=== PATIENT | female | born 1960 | race Caucasian/White ===

== ENCOUNTER 2022-12-08 13:34 | Outpatient (CLI) | payer OTHER, SELFPAY ==
[2022-12-08 21:54] LABS: Chloride* 106 mmol/L (96-114); Potassium* 4.5 mmol/L (3.6-5.1); Sodium* 140 mmol/L (135-149)
[2022-12-08 21:57] LABS: Blood Urea Nitrogen* 22 mg/dL (7-30); Calcium* 10.3 mg/dL (8.4-10.6); Carbon Dioxide* 26 mmol/L (20-32); Estimated Glomerular Filt Rate 64 ml/min; Glucose* 102 mg/dL (60-115); Magnesium* 2.2 mg/dL (1.5-2.6)
== END 2022-12-08 13:35 | disposition home or self-care (01) ==
PROVIDERS: Visit Provider Nurse Practitioner Family
DX: E66.01 Morbid (severe) obesity due to excess calories (principal); R00.2 Palpitations; E55.9 Vitamin D deficiency, unspecified
CPT/HCPCS: 80048; 83735; 84443

== ENCOUNTER 2023-02-25 16:55 | Outpatient (CLI) | payer OTHER, SELFPAY ==
--- NOTE | 2023-02-25 17:00 | CRLHL7_ITS ---
For Patients: As a result of the Century Cures Act, medical imaging exams and procedure reports are released immediately into your electronic medical record. You may view this report before your referring provider. If you have questions, please contact your health care provider. Indication: PALPABLE AREA LEFT SUBMANDIBULAR AREA Technique: Grayscale and color Doppler ultrasound of the left submandibular space performed. Comparison: None Findings: A mildly prominent left submandibular lymph node is present measuring 1.3 x 0.6 x 0.9 cm. A smaller lymph node is also present measuring 9 x 4 x 10 millimeters. Normal internal flow and normal central fatty mark. Impression: Mildly prominent left submandibular lymph node. Dictated by Artie Dang MD @ 02/26/2023 8:30:27 AM (Electronically Signed)
== END 2023-02-25 16:56 | disposition home or self-care (01) ==
PROVIDERS: PCP Nurse Practitioner Family; Visit Provider Nurse Practitioner Family
DX: R59.0 Localized enlarged lymph nodes (principal); R53.83 Other fatigue; E55.9 Vitamin D deficiency, unspecified
CPT/HCPCS: 76536; 80053; 82306; 82607; 84443; 85025; 86039

== ENCOUNTER 2023-06-14 20:14 | Outpatient (CLI) | payer OTHER, SELFPAY | END 2023-06-14 20:15 | disposition home or self-care (01) | PROVIDERS: PCP Nurse Practitioner Family; Visit Provider Nurse Practitioner Family | DX: Z00.00 Encounter for general adult medical examination without abnormal findings (principal); I10 Essential (primary) hypertension; E78.5 Hyperlipidemia, unspecified | CPT/HCPCS: 80053; 80061 ==

== ENCOUNTER 2023-08-05 11:00 | Outpatient (CLI) | payer OTHER, SELFPAY | END 2023-08-05 11:01 | disposition home or self-care (01) | LOC: NFLDREF 08-06 12:29 | PROVIDERS: PCP Nurse Practitioner Family; Referring Provider Nurse Practitioner Family; Visit Provider Nurse Practitioner Family | DX: R74.8 Abnormal levels of other serum enzymes (principal); L98.9 Disorder of the skin and subcutaneous tissue, unspecified; M25.561 Pain in right knee | CPT/HCPCS: 80076 ==

== ENCOUNTER 2023-08-17 12:34 | Outpatient (CLI) | payer OTHER, SELFPAY ==
--- NOTE | 2023-08-17 13:00 | XR_ITS ---
Patient: REFUGIO COLBY Facility:?[facility] Patient ID:?[id number] Site Patient ID:?[id number] Site :?[id number] Study:?DEXA-Bone Density DEXA - ROSETTE HIPS-08/17/2023 2:05:34 PM Ordering Physician:NANCY Final Report: DXA BONE MINERAL DENSITY STUDY Reason for exam: Osteopenia. Current height (in): 70.0. Weight (lb): 250.0. Menopause age: 53. Ethnicity: White. 1. Have you had a previous hip or vertebral fracture? No. 2. Have you had any fractures during your adult life which did not result from significant trauma (e.g., auto accident)? No. 3. Did either of your parents have a hip fracture? No. 4. Do you smoke? No. 5. Have you ever taken Glucocorticoids? No. 6. Do you have rheumatoid arthritis? No. 7. Do you have secondary osteoporosis? No. 8. Do you drink 3 or more alcoholic drinks per day? No. 9. Are you being treated for osteoporosis? No. 10. Have you ever taken any of the following medications: Actonel, Evista, Fosamax, Miacalcin, Reclast, Boniva, Forteo, HRT (i.e. estrogen/hormone therapy), Protelos, Prolia, Vitamin D, Calcium, other ? please specify. ANSWER: No. 11. Do you have any of the following medical conditions: Anorexia or bulimia, asthma or emphysema, end stage renal disease, hyperparathyroidism, any seizure disorders, cancer, inflammatory bowel diseases, hysterectomy, other ? please specify. ANSWER: Yes, hysterectomy. 12. What was your maximum height (inches)? 70. 13. Do you perform weight bearing exercise regularly? No. 14. Do you regularly consume dairy products? No. 15. Do you drink caffeinated beverages? Yes. 16. At what age did your period start? 14. 17. Are you premenopausal? No. 18. How many full term pregnancies have you had? 2. 19. Have you ever missed your period for more than 6 months in a row (not including or menopause)? No. TECHNIQUE: Bone mineral density study was performed using the [facility]. FINDINGS: The results of the study expressed as bone mineral density (BMD) are as follows: Neck Left: BMD: 0.824 g/cm2. T-score: -0.2. Z-score: 1.1. Right: BMD: 0.774 g/cm2. T-score: -0.7. Z-score: 0.7. Total Left: BMD: 1.021 g/cm2. T-score: 0.6. Z-score: 1.7. Right: BMD: 0.924 g/cm2. T-score: -0.1. Z-score: 0.9. IMPRESSION: Normal bone density. Cordelia Lima M.D. Body/Diagnostic Radiologist [email or web address] / be/Dictated by: César Tyson MD @ 09/02/2023 12:49:00 PM Signed by:Fredrick Tyson MD @09/03/2023 9:11:02 PM (Electronic Signature)
== END 2023-08-17 12:35 | disposition home or self-care (01) ==
PROVIDERS: PCP Nurse Practitioner Family; Visit Provider Nurse Practitioner Family
DX: M85.80 Other specified disorders of bone density and structure, unspecified site (principal)
CPT/HCPCS: 77080

== ENCOUNTER 2024-06-27 10:55 | Outpatient (CLI) | payer OTHER, SELFPAY ==
--- OUTSIDE RECORDS SUMMARY | 2024-06-27 11:03 | XMS_ITS | Encounter Summary ---
Author Organization [facility] Address [address] [place] [address] Care Team Providers Care Nursing Instructor Name Role Phone Easton Quinones MD Primary Care Provider [phone] Encounter Details Date Type Department Care Team (Late st Contact Info) Description 12/02/2018 Consent for Procedure/Treatme nt [facility] [address] [place] [address] [id number] [facility] Provider CONSENT FOR PROCEDURE Social History Tobacco Use Types Packs/Day Years Used Date Smoking Tobacco: Former Smokeless Tobacco: Never Alcohol Use Standard Drinks/Week Comments Not Currently 0 (1 standard drink = 0.6 oz pur e alcohol) Sex and Gender Information Value Date Recorded Sex Assigned at Not on file Gender Identity Not on file Sexual Orientation Not on file documented as of this encounter Plan of Treatment Not on file documented as of this encounter Visit Diagnoses Not on filedocumented in this encounter Care Teams Nursing Instructor Relationship Specialty Start Date End Date Easton Quinones MD PCP - General Orthopedic Surgery 12/02/18 documented as of this encounter
--- OUTSIDE RECORDS SUMMARY | 2024-06-27 11:03 | XMS_ITS | Clinical Summary ---
Author Organization [facility] Address [address] [place] [address] Care Team Providers Care Sheet Metal Roofer Name Role Phone César Rodas M.D. Primary Care Provider [phone] Source Comments Patient records contain information from all sites at [facility]. For routine questions regarding patient records, call [phone] during business hours, M-F 8:00 AM - 5:00 PM Central Time. Record requests for emergency care only can be directed to [phone] at any time.[facility] Allergies Active Allergy Reactions Criticality Noted Date Comments Chlorhexidine Other (see comments) Low 07/18/2018 Contact dermititis Hydrocodone-Acetaminoph en Palpitations,Halluc inations Medium 03/25/2009 [place] Penicillins Rash Medium 05/24/2006 Medications * This document contains information received from the source organization and may not represent a complete record from that organization. acetaminophen (for_TYLENOL) 500 mg tablet Take by mouth every 6 (six) hours as needed. 4 Active fluticasone (for_FLONASE) 50 mcg/actuation nasal spray U ONE SPRAY IN BOTH NOSTRILS BID 4 7 Active latanoprost (for_XALATAN) 0.005 % ophthalmic solution INT 1 GTT IN OU QD IN THE MICK 4 7 Active timolol (for_TIMOPTIC) 0.25 % ophthalmic solution INSTILL 1 GTT INTO BOTH EYES QD 2 7 Active loratadine (CLARITIN ORAL) Take by mouth. Active mometasone (NASONEX) 50 mcg/actuation nasal spray Administer into affected nostril(s). 9 Active orphenadrine (NORFLEX) 100 mg ER tablet TAKE 1 TABLET BY MOUTH NEEDED FOR PAIN (DAILY NEEDED FOR HEADACHE) 30 tablet 1 9 Active Additional Information Patient not taking.Reported on 12/30/2022 lisinopril-hydr oCHLOROthiazide (PRINZIDE,ZESTO RETIC) 10-12.5 mg per tablet Take 1 tablet by mouth daily. 90 tablet 3 2 Active nystatin-triamc inolone (MYCOLOG II) 100,000 Unit/g-0.1 % cream Apply 1 application topically 2 (two) times a day. 60 g 2 2 Active celecoxib (CeleBREX) 200 mg capsule Take 1 capsule (200 mg total) by mouth daily. 90 capsule 3 2 Active Additional Information Patient not taking.Reported on 12/30/2022 atorvastatin (LIPITOR) 20 mg tablet Take 1 tablet (20 mg total) by mouth daily. 90 tablet 3 3 Active meloxicam (MOBIC) 15 mg tablet Take 15 mg by mouth daily. 3 Active Wegovy 0.25 mg/0.5 mL pen injector injection 3 Active tapinarof 1 % cream every day 2 Active DULoxetine (CYMBALTA) [address] capsule Take 2 capsules by mouth once daily 180 capsule 3 3 Active Active Problems Problem Noted Date Diagnosed Date Hypertension Essential Primary 08/08/2019 Screening Cancer Colon 08/08/2019 Overview (07/01/2020): Added automatically from request for surgery [id number] Urinary Urge Incontinence 01/13/2019 Migraine Headache 06/20/2018 Depressive Disorder 06/12/2015 Overview (01/12/2017): Depression NOS Mixed Irritable Bowel Syndrome 06/12/2015 Overview (06/20/2018): IBS (irritable bowel syndrome) Obesity Body Mass Index 30-39.9 Adult 06/12/2015 Hyperlipidemia 06/12/2015 Overview (06/20/2018): Hyperlipidemia Arthroplasty Total Knee Replacement Status Post Right Piriformis Syndrome Left Resolved Problems Problem Noted Date Diagnosed Date Resolved Date Screening Cancer Colon 08/08/201906/14 Overview (08/08/2019): Added automatically from request for surgery [id number] Lymphadenopathy 07/05/2018 07/18/2018 Overview (07/05/2018): Added automatically from request for surgery [id number] Screening Cancer Colon 07/26/201701/13 Overview (07/26/2017): Added automatically from request for surgery [id number] Body Mass Index 40.0 To 44.9 Adult 12/30/2016 01/13/2019 Overview (01/12/2017): Body mass index (BMI) 40.0-44.9, adult Rule activated problem due to BMI 40-44 posted on 12/30 at 13:10 CDT. 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/12/2015 01/13/2019 Deficiency Vitamin D 11/18/2013 019 Overview (06/20/2018): Vitamin D deficiency disease Encounters Date Type Department Care Team Description 06/27/2024 Orders Only [facility] PCP [facility] MNT César Rodas M.D. 05/09/2024 Clinical Communication Department of Family Medicine, [facility], in [address] [phone] César Rodas M.D. 03/28/[address] [facility] PCP [facility] MNT César Rodas M.D. Monitoring For Therapeutic Drug Therapy from Last 3 Months Immunizations Name Administration Dates Next Due HepA Adult 04/09/2008,01/20/2006 HepA, Unspecified 04/09/2008,01/20/2006 HepB Adult 04/09/2008,01/20/2006 HepB, Unspecified 04/09/2008,01/20/2006 Influenza, Injectable, Quadrivalent 05/24/2015,0 09/29/2014 Influenza, Unspecified 06/05/2016,05/24/2015 MMR 01/20/2006 RZV (SHINGRIX) 01/06/2021,06/14/2020 SARS-COV-2 (COVID-19) - MODERNA(Discontinued) 12/03/2020,11/01/2020 Td (Adult), adsorbed 08/26/1998 Tdap 09/29/2014,04/09/2008 influenza vaccine quad (FLUZONE/FLUARIX) (6 months and older)(PF) 06/14/2020,08/08/2019,06/15/2018,2015 Family History Medical History Relation Name Comments Breast cancer Aunt maternal Enlarged heart Brother Glaucoma Brother Heart disease Brother Hypertension Brother Alcohol abuse Father Edin Kidney cancer Father Edin Lymphoma Father Edin Colon cancer Grandfather paternal Breast cancer Grandmother maternal Hypertension Grandmother maternal Breast cancer Maternal Grandmother Tasha Basal cell carcinoma Mother Kaylee Coronary artery disease Mother Kaylee Diabetes Mother Kaylee Heart attack Mother Kaylee Heart disease Mother Kaylee Skin cancer Mother Kaylee Cervical Sister Hypothyroidism Sister Anesthesia problems Neg Hx Relation Name Status Comments Aunt maternal Other Age 50s? Brother Father Edin Grandfather paternal Grandmother maternal Other breast cancer a ge 50s? Maternal Grandmother Tasha Mother Kaylee Sister Social History Tobacco Use Types Packs/Day Years Used Date Smoking Tobacco: Former Smokeless Tobacco: Never Tobacco Cessation:Counseling Given: Not Answered Comments:30+ years ago Alcohol Use Standard Drinks/Week Comments Yes 2 (1 standard drink = 0.6 oz pur e alcohol) Humiliation, Afraid, Rape, and Kick questionnair e Answer Date Recorded Within the last year, have y ou been afraid of your partner or ex-partner? No 12/28/2022 Within the last year, have y ou been humiliated or emotionally abused in other ways by your partner or ex-partner? No Within the last year, have y ou been kicked, hit, slapped, or otherwise physically hurt by your partner or ex-partner? No 12/28/2022 Within the last year, have y ou been raped or forced to have any kind of sexual activity by your partner or ex-partner? No 12/28/2022 Social Connection and Isolat ion Panel [NHANES] Answer Date Recorded In a typical week, how many times do you talk on the phone with family, friends, or neighbors? More than three times a week 12/28/2022 How often do you get togethe r with friends or relatives? More than three times a week 12/28/2022 How often do you attend chur or jain services? More than 4 times per year 12/28/2022 Do you belong to any clubs o r organizations such as holiness groups, unions, fraternal or athletic groups, or school groups? Yes 12/28/2022 How often do you attend meet ings of the clubs or organizations you belong to? More than 4 times per year 12/28/2022 Are you , , di vorced, , never , or living with a partner? 12/28/2022 AUDIT-C Answer Date Recorded Q1: How often do you have a drink containing alc ohol? 2-3 times a week 12/28/2022 Q2: How many drinks containi ng alcohol do you have on a typical day when you are drinking? 1 or 2 12/28/2022 Q3: How often do you have si x or more drinks on one occasion? Never 12/28/2022 Overall Financial Resource Strain (CARDIA) Answe r Date Recorded How hard is it for you to pa y for the very basics like food, housing, medical care, and heating? Not hard at all 12/28/2022 PHQ-2 Answer Date Recorded PHQ-2 Score 0 02/10/2021 [facility] - Occupational Stress Questionnaire Answer Date Recorded Do you feel stress - tense, restless, nervous, or anxious, or unable to sleep at night because your mind is troubled all the time - these days? Not at all 12/28/2022 Exercise Vital Sign Answer Date Recorde d On average, how many days pe r week do you engage in moderate to strenuous exercise (like a brisk walk)? 0 days 12/28/2022 On average, how many minutes do you engage in exercise at this level? 0 min 12/28/2022 Hunger Vital Sign Answer Date Recorded Within the past 12 months, y ou worried that your food would run out before you got the money to buy more. Never true 12/29/19 23 Within the past 12 months, t he food you bought just didn't last and you didn't have money to get more. Never true 12/28/2022 PRAPARE - Transportation Answer Date Re corded In the past 12 months, has l ack of transportation kept you from medical appointments or from getting medications? No 03/2023 In the past 12 months, has l ack of transportation kept you from meetings, work, or from getting things needed for daily living? No 12/28/2022 Housing Stability Vital Sign Answer Vito e Recorded In the last 12 months, was t here a time when you were not able to pay the mortgage or rent on time? No 12/28/2022 In the last 12 months, how many places have you lived? 1 12/28/2022 In the last 12 months, was t here a time when you did not have a steady place to sleep or slept in a half-way (including now)? No 12/28/2022 Depression Answer Date Recor ded PHQ-9 Total Score (max 27) 8 02/10 Nutrition Answer Date Recorded Nutrition: EVOO Fat Source Yes 12/28 On average, how many serving s of fruits and vegetables do you eat per day (serving size is equal to 1 cup or approximately the size of a tennis ball)? 2-3 12/28/2022 Dental Answer Date Recorded Dental: Regular Dentist Yes 02/14/20 22 Employment Answer Date Recorded Employment status Retired 12/28/2022 Education Answer Date Recorded What is the highest level of school you have completed or the highest degree you have received? 12th grade 12/28/2022 Comments No Sex and Gender Information Value Date Recorded Sex Assigned at Female 06/20/2018 7:40 PM CDT Legal Sex Female 11:43 AM PROCESS ENGINEER Gender Identity Female 06/20/2018 7:40 PM CDT Sexual Orientation Straight 06/20/2018 7: 40 PM CDT Last Filed Vital Signs Vital Sign Reading Time Taken Comments Blood Pressure 122/80 06/15/2023 10:30 AM CDT Pulse 80 06/15/2023 10:30 AM CDT Temperature 36.4 ??C (97.5 ??F) 06/15/2023 9:05 AM CD T Respiratory Rate 16 06/15/2023 10:30 AM CDT Oxygen Saturation 95% 06/15/2023 10:30 AM CDT Inhaled Oxygen Concentration - - Weight 137 kg (302 lb 0.5 oz) 06/15/2023 9:05 AM CDT Height 177 cm (5' 9.69) 06/15/2023 9:05 AM CDT Body Mass Index 43.73 06/15/2023 9:05 AM CDT Plan of Treatment Upcoming Encounters Date Type Department Care Team (Late st Contact Info) Description 06/29/2024 10:15 AM PROCESS ENGINEER Clinical Support Department of Integrative Medicine in [place], [place] [address] [place] [phone] Rosy Rowe [address] [place] [phone] Health Maintenance Due Date Last Done Comments CT Colonography 1960 Cologuard 1960 Depression Monitoring (PHQ-9) 1960 HIV Screening 1960 Hepatitis B Vaccines (3 of 3 - 19+ 3-dose series) 06/04/2008 04/09/2008, 04/09/2008, 01/20/2006, Additional history exists Visit: Chronic Disease, age 18+ 04/07/2023 04/07/2022 Creatinine Level (Kidney Function Test) 05/14/2023 05/14/2022, 07/10/2021, 06/14/2020, Additional history exists Potassium Level 05/14/2023 05/14/2022, 06/23, 06/14/2020, Additional history exists Sodium Level 05/14/2023 05/14/2022, 06/23, 06/14/2020, Additional history exists Depression Monitoring (PHQ-9 for quality tracking) 08/23/2023 Office Visit for Blood Pressure Check / Re-check 12/31/2023 12/30/2022 COVID-19 Vaccine ( season) 2024 08/05/2023, 08/05/2021, 12/03/2020, Additional history exists Influenza Vaccine (#1) 2024 , 07/29/2022, 06/14/2020, Additional history exists Mammogram 08/02/2024 08/02/2023, 1201/2022, 07/21/2021, Additional history exists DTaP,Tdap,and Td Vaccines (3 - Td or Tdap) 09/29/2024 09/29/2014, 04/09/2008, 08/26/1998 Fasting Glucose for Diabetes Screening 05/14/2025 05/14/2022, 07/10/2021, 06/14/2020, Additional history exists Colonoscopy 05/30/2026 05/30/2021, 04/19/2008 Colorectal Cancer Surveillance 05/30/2026 Lipid (Cholesterol) Screening 05/14/2027 05/14/2022, 11/26/2018, 06/24/2018, Additional history exists Hepatitis A Vaccines Completed 04/09/2008, 04/09/2008, 01/20/2006, Additional history exists Hepatitis C Screening Completed 01/06/2017 Zoster Vaccines Completed 01/06/2021, 06/14/2020 IPV Vaccines Aged Out No longer eligi ble based on patient's age to complete this topic Pneumococcal vaccine (0-64 years) Aged Out No longer eligible based on patient's age to complete this topic Medical Devices Implanted Type Area Pie Cutter Device Identifier Shelf Expiration Date Model / Serial / Lot Conversions - Default Historical Implant Device Implanted:2016 (Quantity not on file) Foreign Body (e.g. Shrapnel) Description:Device Status Te xt - Shrapnel. right hand. Conversions - Default Historical Implant Device Implanted:2016 (Quantity not on file) Hardware e.g. pins/screws/ rods Description:Device Status Te xt - Hardware. rods in back. Mesh Ventralex St 6.4cm [employer] - Hernandez [id number] Implanted:Qty: 1 on 06/29/2017 Mesh or Patch Abdomen [employer] Description:Device Manufactu rer - [employer]. Body Location - Other. Abdominal. Device Status Text - [id number]. Urologic Other Urologic Other Bladder Description:Bladder sling Procedures Procedure Name Priority Date/Time Associated Diagnosis Comments BI BREAST SCREENING BILATERAL WITH TOMOSYNTHESIS RAD - Routine (most inpatients and all outpatients) 08/02/2023 11:54 AM PROCESS ENGINEER Screening Mammogram Breast Cancer LIPID PANEL, S Routine 05/14/2022 7:34 AM CDT Hyperlipidemia BASIC METABOLIC PANEL, S/P Routine 05/14/2022 7:34 AM CDT Hypertension Essential Primary COLONOSCOPY 05/30/2021 8:00 AM CDT HCV AB SCRN W/REFLEX TO HCV PCR, S Routine 01/06/2017 9:37 AM CDT from Last 3 Months or Most Recently Relevant to Health Maintenance Results * BI Breast Screening Bilateral with Tomosynthesis (08/02/2023 11:54 AM PROCESS ENGINEER) Anatomical Region Laterality Modality Breast, Breast Imaging RST L OS, Breast Imaging ARZ LOS, Breast Imaging FLA LOS Bilateral Mammography 08/03/2023 12:0 8 PM PROCESS ENGINEER Impressions 08/03/2023 12:10 PM PROCESS ENGINEER Negative. RECOMMENDATION: ??Annual Screening Mammogram ASSESSMENT: ??BI-RADS: 1: Negative. Narrative 08/03/2023 12:10 PM PROCESS ENGINEER EXAM: ??BI BREAST SCREENING BILATERAL WITH TOMOSYNTHESIS Current study was evaluated with a Computer Aided Detection (CAD) system. INDICATION: ??Screening mammogram. COMPARISON: ??Prior exam(s) were available and reviewed for comparison. DENSITY: ??b. There are scattered areas of fibroglandular density. FINDINGS: ??No mammographic findings of malignancy. Procedure Note Shlomo Freitas M.D. - 08/03/2023 EXAM: BI BREAST SCREENING BILATERAL WITH TOMOSYNTHESIS Current study was evaluated with a Computer Aided Detection (CAD) system. INDICATION: Screening mammogram. COMPARISON: Prior exam(s) were available and reviewed for comparison. DENSITY: b. There are scattered areas of fibroglandular density. FINDINGS: No mammographic findings of malignancy. IMPRESSION: Negative. RECOMMENDATION: Annual Screening Mammogram ASSESSMENT: BI-RADS: 1: Negative. César Rodas M.D. IMG BI PROCEDURES Final Resu lt * (ABNORMAL) Lipid Panel (05/14/2022 7:34 AM CDT) Triglycerides 213(H) mg/dL 05/14/2022 8:02 AM CDT [facility] Comment: ----REFERENCE VALUE---- Normal: <150 mg/dL Borderline High: 150-199 mg/dL High: 200-499 mg/dL Very High: > or =500 mg/dL Cholesterol, Total 159 mg/dL 2021 8:02 AM CDT [facility] Comment: ----REFERENCE VALUE---- Desirable: < 200 mg/dL Borderline High: 200 - 239 mg/dL High: > or = 240 mg/dL Cholesterol, LDL, Calculated 71 mg/dL 05/14/2022 8:02 AM CDT [facility] Comment: ----REFERENCE VALUE---- Desirable: <100 mg/dL Above Desirable: 100-129 mg/dL Borderline High: 130-159 mg/dL High: 160-189 mg/dL Very High: >=190 mg/dL ----ADDITIONAL INFORMATION---- LDL cholesterol calculated using the Lamas/NIH equation. Cholesterol, HDL 53 >=50 mg/dL 05/14/20 8:02 AM CDT [facility] Cholesterol, Non-HDL, Calculated 106 mg/dL 05/14/2022 8:02 AM CDT [facility] Comment: ----REFERENCE VALUE---- Desirable: <130 mg/dL Above Desirable: 130-159 mg/dL Borderline High: 160-189 mg/dL High: 190-219 mg/dL Very High: > or =220 mg/dL Fasting (8 HR or more) Yes 05/14/2022 7:39 AM CDT [facility] Blood (Blood, Venous) 05/14/2022 7:34 AM CDT 05/14/2022 7:39 AM CDT Ramonita Pimentel D.O. LAB BLOOD ADD-ON Final R esult Performing Organization Address City/[facility]/ZIP Co de Phone Number [facility] [address] [address], [facility] [place] [phone] * (ABNORMAL) Basic Metabolic Panel (05/14/2022 7:34 AM CDT) Potassium, P 4.2 3.6 - 5.2 mmol/L 05/14/2022 8:02 AM CDT [facility] Sodium, P 141 135 - 145 mmol/L 05/14/2022 8:02 AM CDT [facility] Chloride, P 103 98 - 107 mmol/L 05/14/2022 8:02 AM CDT [facility] Bicarbonate, P 27 22 - 29 mmol/L 05/14/2022 8:02 AM CDT [facility] Anion Gap, P 11 7 - 15 05/14/2022 8:02 AM CDT [facility] BUN (Blood Urea Nitrogen), P 22(H) 6 - 21 mg/dL 05/14/2022 8:02 AM CDT [facility] Creatinine 0.96 0.59 - 1.04 mg/dL 05/14/2022 8:02 AM CDT [facility] Estimated GFR (eGFR) 68 >=60 mL/min/BSA 05/14/2022 8:02 AM CDT [facility] Comment: Estimated GFR calculated using the 2020 CKD_EPI creatinine equation. Calcium, Total, P 10.2 8.8 - 10.2 mg/dL 05/14/2022 8:02 AM CDT [facility] Glucose, P 103 70 - 140 mg/dL 05/14/2022 8:02 AM CDT [facility] Blood (Blood, Venous) 05/14/2022 7:34 AM CDT 05/14/2022 7:39 AM CDT us Ramonita Pimentel D.O. LAB BLOOD ADD-ON Final R esult [facility] [address] [place] [address], [facility] [place] [address] [place] [phone] * COLONOSCOPY (05/30/2021 8:00 AM CDT) Narrative Procedure Note Bright Ba M.D. - 05/30/2021 8:[address] [facility] [place] [facility] Patient Name: Jacinta Holcomb Procedure Date: 05/30/2021 8:00 AM Date of : 1960 Age: 60 Gender: Female Procedure: Colonoscopy Providers: Bright Ba MD, Ramonita Pimentel (Ordering Provider) Referring Provider: Ramonita Pimentel Pre-op Diagnoses: Screening for colorectal malignant neoplasm Post-op Diagnoses: - Two 3 to 5 mm polyps in the transverse colon, removed with a cold snare. Resected and retrieved. - Diverticulosis in the sigmoid colon. - The examination was otherwise normal on direct and retroflexionviews. Recommendation: - Await pathology results. - Repeat colonoscopy in 5 years for surveillance. Findings: The perianal and digital rectal examinations were normal. Two sessile polyps were found in the transverse colon. The polypswere 3 to 5 mm in size. These polyps were removed with a cold snare.Resection and retrieval were complete. Multiple small-mouthed diverticula were found in the sigmoid colon. The exam was otherwise without abnormality on direct and retroflexion views. Medicines: Monitored Anesthesia Care Estimated Blood Loss: Estimated blood loss: none. Complications: No immediate complications. Procedure Details: The patient was seen, evaluated, and history reviewed. Airway and heart and lung exams were performed and were satisfactory for plannedsedation care. The risks, benefits and alternatives for the procedure and sedation were discussed andinformed consent was obtained. A procedural pause was conducted in the presence of assisting personnelto verify the correct patient identity and procedureto be performed. Throughout the procedure, the patient's blood pressure, pulse, and oxygen saturations were monitored continuously. The Colonoscope was introduced under directvision through the anus and advanced to the terminalileum. The colonoscopy was performed without difficulty. The patient tolerated the procedure well. The quality of the bowel preparation was evaluatedusing the BBPS (Upson Bowel Preparation Scale) with scores of: Right Colon = 3, Transverse Colon = 3and Left Colon = 3 (entire mucosa seen well with no residual staining, small fragments of stool or opaque liquid). The total BBPS score equals 9. Sedation: SUZAN Ba MD 05/30/2021 8:31:24 AM This report has been signed electronically. Number of Addenda: 0 Note Initiated On: 05/30/2021 8:00 AM Ramonita Pimentel D.O. GI PROCEDURE ORDERABLES Final Result * HCV Ab w/Reflex to HCV PCR, S (medicare) (01/06/2017 9:37 AM CDT) HXHCV Ab [facility] Negative Negative POWERCHART Comment: Fqlqlh-wn-[id number] ratio is <1.00. Test Performed by: [address] [address] Blood 01/06/2017 9:37 AM CDT Gaby Boone APRN, C.N.P. LAB MICROBIOLOGY - BLO OD ORDERABLES Final Result POWERCHART from Last 3 Months or Most Recently Relevant to Health Maintenance Insurance [facility] Advance Directives For more information, please contact: [phone] * Full Code (Latest Code Status on File) Date Activated Date Inactivated Comments 05/30/2021 8:34 AM 05/30/2021 11:18 AM Question Answer Comments Full Code: Discussed * Full Code Date Activated Date Inactivated Comments 07/12/2018 9:48 AM 07/12/2018 3:26 PM Question Answer Comments Full Code: Discussed Care Teams Sheet Metal Roofer Relationship Specialty Start Date End Date César Rodas M.D. [address] [place] [phone] PCP - General 05/29/22
--- OUTSIDE RECORDS SUMMARY | 2024-06-27 11:03 | XMS_ITS ---
Author Organization [facility] Address [address] [place] [address] Care Team Providers Care Internal Control Consultant Name Role Phone Unavailable Unavailable Unavailable Surgery Details Not on file Complications Check Surgery Details section. Procedure Estimated Blood Loss Check Surgery Details section. Procedure Findings Check Surgery Details section. Procedure Specimens Taken Check Surgery Details section.
--- OUTSIDE RECORDS SUMMARY | 2024-06-27 11:03 | XMS_ITS | Clinical Summary ---
Author Organization [employer] [facility] Address [place], [place] [address] Care Team Providers Care Pot Fisher Name Role Phone Melody Stinson NP Primary Care Provider [phone] Allergies Active Allergy Reactions Criticality Noted Date Comments Chlorhexidine Other - Describe In Comment Field Low 07/18/2018 Contact dermititis Other reaction(s): Other (see comments) Contact dermititis Chlorhexidine Gluconate Rash 11/30/2018 Hydrocodone Palpitations 11/30/2018 hallucinations Penicillins Rash Medium 05/24/2006 Hydrocodone-Acetaminop hen Palpitations,Hallucin ations Medium 03/25/2009 Other reaction(s): Hallucinations [place] Medications Medication Sig Dispensed Refills Start Date End Date Status NORGESIC FORTE ORALIndications:Migr rubi, unspecified, without mention of intractable migraine without mention of status migrainosus take 1 tablet by mouth tid daily prn migraines. 30 2 05/25/2008 Active ESTROGEL 1.25 GRAM/ACTUATION (0.06%) TRANSDERMAL GEL PUMP apply 1.25 gram by topical route once daily to the arm (from wrist to shoulder) 0 03/11/2009 Active atorvastatin (LIPITOR) 20 mg tablet Take 20 mg by mouth once daily. 0 07/01/2018 Active glucosamine HCl/chondroitin marsh (GLUCOSAMINE-CHONDRO ITIN ORAL) Take 1 capsule by mouth once daily. Active zolpidem (AMBIEN) 5 mg tablet Take 5 mg by mouth at bedtime if needed. 01/17/2019 Active durable medical equipment (DME)Indications:Trent lure of total knee replacement, initial encounter (HC) Game Ready 1 Each 05/15/2020 Active lisinopril-hydrochlo rothiazide (10-12.5 mg) tablet (PRINZIDE; ZESTORETIC) Take 1 Tab by mouth once daily. 08/08/2019 Active loratadine (CLARITIN) 10 mg tablet Take 10 mg by mouth once daily if needed for Allergy Symptoms. Active mometasone (NASONEX) (50 mcg each actuation) nasal spray Inhale 2 Sprays into both nostrils once daily if needed for Other (Specify). Active vitamin B complex (B-COMPLEX VITAMIN) tablet Take 1 tablet by mouth once daily. Active traZODone (DESYREL) 50 mg tablet Take 50 mg by mouth at bedtime if needed for Sleep. Active cholecalciferol, Vitamin D3, 2,000 unit tablet Take 2,000 Units by mouth once daily. Active nystatin-triamcinolo ne (MYCOLOG) cream Apply topically to affected area(s) 2 times daily if needed for Other (Specify). 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 Maximum of 3200 mg in 24 hours. 60 tablet 06/25/2020 Active ondansetron (ZOFRAN ODT) 4 mg disintegrating tabletIndications:St atus post revision of total knee, right Place 1 tablet on the tongue every 6 hours if needed for Nausea/Vomiting. 10 tablet 06/25/2020 Active HYDROcodone-acetamin ophen, 5-325 mg, (NORCO) per tabletIndications:St atus post revision of total knee, right Take 1-2 tablets by mouth every 4 hours if needed for Pain Max acetaminophen dose: 4000 mg in 24 hrs. 30 tablet 06/27/2020 Active traMADoL (ULTRAM) 50 mg tabletIndications:St atus post revision of total knee replacement, unspecified laterality Take 1 tablet by mouth every 6 hours if needed for Pain. 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 s/p right total knee arthrop lasty 12/02/2018 by Easton Driscoll MD 11/02/2019 S/P LASIK (laser assisted in situ keratomileusis) of both eyes 04/30/2016 Lipoma of joint 05/11/2013 Symptomatic menopausal or female climacteric sta stephy 09/04/2007 Other and unspecified hyperlipidemia 02/09/2007 Low tension open-angle glaucoma(365.12) 05/24/20 06 Unspecified sinusitis (chronic) Migraine, unspecified, witho ut mention of intractable migraine without mention of status migrainosus Attention deficit disorder without mention of hy peractivity Obesity, unspecified Hypertension Encounters Date Type Department Care Team Description 06/15/2024 Orders Only [facility] Scanner 1 scan: (1-Ord) RCM from Last 3 Months Immunizations Name Administration Dates Next Due Hepatitis A (Adult) 04/09/2008,01/20/2006 Hepatitis B (Adult) 04/09/2008,01/20/2006 MMR 01/20/2006 Td (Age >=7 Years) 08/26/1998 Tdap 04/09/2008 Family History Medical History Relation Name Comments Heart Disease Brother 2 ENLARGED HEART Unknown Brother 3 glaucoma Alcohol/Drug Father ETOH Heart Disease Maternal Aunt 1 Jasmine CA/NONSMOKE R, [phone] age 48 Cancer-breast Maternal Aunt 2 Randi [phone] ? throat cancer Heart Disease Maternal Aunt 3 [place] Heart disea se, glaucoma Other Maternal Aunt 4 Nellie non cancerou s growth on ovary Stroke Maternal Uncle 1 Roque Diabetic, C AD, [phone] age 74 Other Maternal Uncle 2 Chai Pneumonia, glaucoma [phone] age 74 Cancer Mother Kaylee BASAL CELL/NOSE Heart Disease Mother Kaylee CABG AGE 65/ N ONSMOKER, [phone], age 72 Cancer Other 2ND COUSIN/LYMP CESILIA Cancer-colon Paternal Grandfather Relation Name Status Comments Brother 1 MVA Brother 2 Brother 3 Father (Age 44) METASTATIC HYPERNEPHROMA Maternal Aunt 1 Jasmine Maternal Aunt 2 Randi Maternal Aunt 3 [place] Maternal Aunt 4 Nellie Maternal Grandfather (Age 60) CA Maternal Grandmother (Age YOUNG ) UNKNOWN Maternal Uncle 1 Roque Maternal Uncle 2 Chai Mother Kaylee Other Paternal Grandfather (Age 80) CA Social History Tobacco Use Types Packs/Day Years Used Date Smoking Tobacco: Former Cigarettes 2 7 Smokeless Tobacco: Never Comments:quit 30 years ago Alcohol Use Standard Drinks/Week Comments No 0 (1 standard drink = 0.6 oz pur e alcohol) Social Connections Answer Date Recorded Frequency of Communication with Friends and Fami ly Not on file 2021 Financial Resource Strain Answer Date R ecorded Difficulty of Paying Living Expenses Not on file 2021 Difficulty of Paying Living Expenses Not on file 2021 Sex and Gender Information Value Date Recorded Sex Assigned at Not on file Gender Identity Not on file Sexual Orientation Not on file Obstetrics History Para Term AB IAB SAB Ectopic Multiple Livin g Live Births 2 2 2 2 Date Outcome GA Total Labor Labor/2nd/3rd Weight Sex Type Anes PTL Brandi A1 A5 Name Clin Term M Russell Term Amari Matos Last Filed Vital Signs Vital Sign Reading Time Taken Comments Blood Pressure 141/86 05/11/2022 10:41 AM CDT Pulse 72 05/11/2022 10:41 AM CDT Temperature 36.5 ??C (97.7 ??F) 05/11/2022 1 0:41 AM CDT Respiratory Rate 16 06/25/2020 8:24 AM [employer] SALES REPRESENTATIVE Oxygen Saturation 98% 05/11/2022 10: 41 AM CDT Inhaled Oxygen Concentration - - Weight 132.8 kg (292 lb 12.3 oz) 2019 10:50 AM [employer] SALES REPRESENTATIVE Height 177.8 cm (5' 10) 06/24/2020 10: 50 AM [employer] SALES REPRESENTATIVE Body Mass Index 42.01 06/24/2020 10:50 AM [employer] SALES REPRESENTATIVE Plan of Treatment Health Maintenance Due Date Last Done Comments Depression screening for age 12+ 1973 HIV for age 15-65 1976 Hepatitis C screening for age 18-79 1979 Colonoscopy through age 75 2006 Mammogram for age 45-75 03/11/2010 03/11/20 09, 03/11/2009, 03/07/2008, Additional history exists Pap test for age 21-65 04/09/2011 8, 03/07/2007, 01/20/2006, Additional history exists Zoster (shingles) series for age 50+ (1 of 2) 2011 Lipids for age 45-75 06/18/2014 06/18/2009, 03/01/2008, 06/06/2007, Additional history exists Tetanus booster 04/09/2018 04/09/2008, 08/26/1998 BMI (ht and wt on same day) for age 18+ 05/15/2021 05/15/2020 COVID-19 vaccine series (2023- season) 2024 08/05/2023, 08/05/2021, 12/03/2020, Additional history exists Influenza for age 50-64 04/23/2024 Tdap Completed 04/09/2008 Pneumococcal series for age 6-64 Aged Out No longer eligible based on patient's age to complete this topic Medical Devices Implanted Type Area Adon Device Identifier Shelf Expiration Date Model / Serial / Lot Tecnis Aspheric Acrylic Iol [id number] +15.5 D Implanted:Qty: 1 on 01/19/2019 by Stephen Rowe MD at [facility] Right: Eye [employer] 08/06/2021 / [id number] 12 / N/A Description:Tecnis Aspheric Acrylic IOL [id number] +15.5 D Kayden 4.0cmx5.5mm Pre-Cut - [id number] Implanted:Qty: 2 on 03/25/2009 at [facility] Spine Implants Spine SOFAMOR DANEK [id number] # / / [id number] bone Yoan Canclls Chips 30cc Gamma Frz Dried [[id number]] Implanted:Qty: 1 on 03/25/2009 at [facility] Explanted:at [facility] (Quantity not on file) Spine Allosource 11/07/2013 [id number] # / [id number] 29 / Kit Infuse Sm - [id number] Implanted:Qty: 1 on 03/25/2009 at [facility] Spine SOFAMOR DANEK [id number]# / / [id number] [place] Spacer Peek 30x14 [place] - [id number] Implanted:Qty: 1 on 03/25/2009 at [facility] Spine SOFAMOR DANEK [id number]# / / [id number] Cnnctr Tsrh 3dx Sm - [id number] Implanted:Qty: 4 on 03/25/2009 at [facility] Spine Medtronic [id number]# / / Screw Tsrh Tc 6.5x40mm Std Titnm - [id number] Implanted:Qty: 4 on 03/25/2009 at [facility] Spine MEDTRONIC PS MEDICAL [id number] # / / Set Screw 3dx - [id number] Implanted:Qty: 4 on 03/25/2009 at [facility] Spine [employer] PS MEDICAL [id number]# / / Strip Silcn 1.0mmx5.9hrn721 labtician - [id number] Implanted:Qty: 1 on 09/07/2018 by Winston Koch MD at [facility] Right: Eye [employer] 08/23/2024 [id number]# / / [id number] Sleeve Oval S3084 - [id number] Implanted:Qty: 1 on 09/07/2018 by Winston Koch MD at [facility] Right: Eye [employer] 08/23/2024 S3084# / / [id number] Cmnt Bone Simplex Atb Tobramycin - [id number] Implanted:Qty: 1 on 06/24/2020 by Alexander Langley MD at [facility] Right: Knee [employer] 10/20/2021 6197-9-0 01# / / [id number] Cmnt Bone Simplex Atb Tobramycin - [id number] Implanted:Qty: 2 on 06/24/2020 by Alexander Langley MD at [facility] Right: Knee [employer] 10/20/2021 6197-9-0 01# / / [id number] Candelariont Ehsan Wilson W/Video Journalist [id number] - [id number] Implanted:Qty: 1 on 06/24/2020 by Alexander Langley MD at [facility] Right: Knee [employer] 01/29/2025 [id number] # / / [id number] Stem Knee [id number] Trithlon Press Fit Titnm - [id number] Implanted:Qty: 1 on 06/24/2020 by Alexander Langley MD at [facility] Right: Knee [employer] 02/05/2024 [id number] # / / [id number] Baseplate Tib Sz4 Triathlon Pe - [id number] Implanted:Qty: 1 on 06/24/2020 by Alexander Langley MD at [facility] Right: Knee [employer] 10/15/2024 5521-B-4 00# / / [id number] Augment Knee Lt Sz4 5mm Triathlon Fem - [id number] Implanted:Qty: 1 on 06/24/2020 by Alexander Langley MD at [facility] Right: Knee [employer] 03/13/2024 5540-A-4 01# / / [id number] Augment Knee Rt Sz4 5mm Triathlon Fem - [id number] Implanted:Qty: 1 on 06/24/2020 by Alexander Langley MD at [facility] Right: Knee [employer] 05/23/2024 5540-A-4 02# / / [id number] Fem Rt Sz4 Triathlon - [id number] Implanted:Qty: 1 on 06/24/2020 by Alexander Langley MD at [facility] Right: Knee [employer] 09/06/2023 [id number] # / / [id number] Stem Knee 96u98tu Triathlon - [id number] Implanted:Qty: 1 on 06/24/2020 by Alexander Langley MD at [facility] Right: Knee [employer] 05/13/2025 5560-S-1 12# / / [id number] Triathlon X3 Total Stabilizer Tibial Insert, Size# 4, 22mm, Ts Implanted:Qty: 1 on 06/24/2020 by Alexander Langley MD at [facility] Right: Knee [employer] 01/05/2021 5537-G-4 22 / / [id number] Explanted Type Area Adon Device Identifier Shelf Expiration Date Model / Serial / Lot Right Total Knee Femoral And Tibial Components Explanted:Qty: 3 on 06/24/2020 by Alexander Langley MD at [facility] Right: Knee Procedures Procedure Name Priority Date/Time Associated Diagnosis Comments SCAN-EYE EXAM 06/15/2024 12:00 AM CDT LIPID PANEL Routine 06/18/2009 8:29 AM CDT HYPERLIPIDEMIA SCAN-MAMMOGRAPHY REPORT 03/11/2009 12:00 AM CDT LABOR RELATIONS REPRESENTATIVE THIN PREP PAP SCREEN IMAGED Routine 04/09/2008 2:38 PM CDT Screening for Malignant Neoplasm of the Cervix from Last 3 Months or Most Recently Relevant to Health Maintenance Results * SCAN-EYE EXAM (06/15/2024 12:00 AM CDT) Scanner OTHER * (ABNORMAL) LIPID PANEL (06/18/2009 8:29 AM CDT) CHOLESTEROL,TOTAL 184 110 - 199 mg/dL [facility] TRIGLYCERIDES 366(H) 40 - 149 mg/dL [facility] HDL CHOLESTEROL 40(L) >40 mg/dL [facility] CHOL/HDL RATIO 4.60(H) <4.51 [facility] LDL CHOLESTEROL 71 <131 mg/dL [facility] PATIENT STATUS Fasting [facility] Blood specimen (specimen) BLOOD SPECIMEN / Unknown 06/18/2009 8:29 AM CDT 06/18/2009 8:22 AM CDT Yolanda KYLE CHEMISTRY [facility] [place]NAL ZIP [id number] [address] * SCAN-MAMMOGRAPHY REPORT (03/11/2009 12:00 AM CDT) Anatomical Region Laterality Modality Other Narrative Procedure Note Scanner - 03/11/2009 12:00 AM CDT Scanner OTHER * LABOR RELATIONS REPRESENTATIVE THIN PREP PAP SCREEN IMAGED (04/09/2008 2:38 PM CDT) CYTOLOGY ??CYTOPATHOLOGY REPORT ??[facility] ?? Status: Final Report ? [id number] ?? CLINICAL INFORMATION ?LMP ? : 02/21/08 ?Previous Pap Date ? : 03/07/07 ?Previous PAP Dx ? : Negative for intraepithelial lesion or ?malignancy (NIL) ?Previous Spencer/bx date : 1984 ?Previous Colposcopy/Bx: see comment ?Hormone Usage ? : None ?Menstrual Status ?: Irregular Periods ?Appearance of Cervix ??: Not given ?Spencer/Bx done today ?: No ?HPV Request ? : Reflex HPV test if PAP Dx ASCUS ?? SPECIMEN SOURCE ?: Cervical/vaginal ThinPrep Vial, screening ?? SPECIMEN ADEQUACY ?: Satisfactory for evaluation Endocervical ?component present. ? INTERPRETATION/RES ULT: ?Negative for intraepithelial lesion or malignancy (NIL) ? Cytology 1st Screener : ??kmh ?? Signed by: ? kmh ?? This specimen was screened by the FDA approved ThinPrep Imaging ?? System and manually reviewed. ?? NOTE: The Pap test is a screening technique, not a diagnostic ?? procedure. It is used primarily to screen for squamous cancers and ?? precursor lesions. Published studies have shown that it is subject to ?? both false negative and false positive results. The pap test should ?? not be used as the sole means to diagnose or exclude pre-malignant and ?? malignant lesions. ?? COLLECTED: 04/09/08 ?? ACCESSIONED: 04/09/08 ?? SIGNED: 04/16/08 [facility] PAP [facility] CODE NIL [facility] Cervical (Cervical) 04/09/2008 2:38 PM CDT 04/09/2008 2:37 PM CDT Danuta Mantilla MD PATHOLOGY/CYTOLOGY [facility] INTERNAL ZIP [address] [place] [phone] from Last 3 Months or Most Recently Relevant to Health Maintenance Advance Directives * Full Code (Latest Code Status on File) Date Activated Date Inactivated Comments 06/24/2020 5:01 PM 06/25/2020 3:48 PM Question Answer Comments Code Status Discussion: Not Discussed * Full Code Date Activated Date Inactivated Comments 06/24/2020 10:27 AM 06/24/2020 5:01 PM Question Answer Comments Code Status Discussion: Not Discussed * Full Code Date Activated Date Inactivated Comments 09/07/2018 2:11 PM 09/07/2018 8:54 PM * Full Code Date Activated Date Inactivated Comments 03/25/2009 10:11 PM 03/28/2009 4:17 PM * Full Code Date Activated Date Inactivated Comments 03/25/2009 1:13 PM 03/25/2009 10:11 PM Care Teams Pot Fisher Relationship Specialty Start Date End Date Melody Stinson NP [address] [place] [id number] PCP - General Emergency Medicine 08/19/23
--- OUTSIDE RECORDS SUMMARY | 2024-06-27 11:03 | XMS_ITS | Clinical Summary ---
Author Organization [facility] Address [address] [place] [address] Care Team Providers Care Pharmacognosy Teacher Name Role Phone Easton Quinones MD Primary Care Provider [phone] Source Comments You are receiving this document as you are listed as the primary care provider,follow-up provider, or the patient has been referred to you for consultation.This is in compliance with the Medicare and[facility] EHR Incentive Program,which states Providers who transition their patient to another setting of careor provider of care or refers their patient to another provider of care shouldprovide summary care record for each transition of care or referral. [facility] Allergies Active Allergy Reactions Criticality Noted Date Comments Chlorhexidine Gluconate Rash 11/30/2018 Hydrocodone Palpitations 11/30/2018 hallucinations Penicillins Rash 11/30/2018 Medications Medication Sig Dispensed Refills Start Date End Date Status atorvastatin (LIPITOR) 20 MG tablet Take 20 mg by mouth daily. Active Estradiol 0.75 MG/0.75GM GEL Apply 1 Application topically daily. Patient states she applies once daily in the morning to her left arm Active timolol (TIMOPTIC) 0.25 % eye drop solution Place 1 Drop into both eyes two times a day. Patient uses in the morning Active latanoprost (XALATAN) 0.005 % eye drop solution Place 1 Drop into both eyes every evening. Active loratadine (CLARITIN) 10 MG tablet Take 10 mg by mouth daily. Active acetaminophen (TYLENOL) 500 MG tablet Take 1 Tablet by mouth every 4 hours as needed for Pain. Maximum acetaminophen dose is 3000 mg in 24 hours 100 Tablet 12/04/2018 Active oxyCODONE (ROXICODONE) 5 MG immediate release tabletIndications :Acute Pain Take 1-2 Tablets by mouth every 4 hours as needed for Pain. 1 tab for minimum pain, verbal scale 1-5; 2 tabs for maximum pain, verbal scale 6-10 Indications: Acute Pain 50 Tablet 12/04/2018 Active sennosides-docusa te sodium (SENOKOT S) 8.6-50 MG per tablet Take 1 Tablet by mouth two times daily as needed for Constipation. If you have not had a bowel movement by post op day 4, add a laxative such as Milk of Magnesia or Miralax (check with pharmacist to see which is safe for you to take). 30 Tablet 12/04/2018 Active aspirin 325 MG tablet Take 1 Tablet by mouth daily. 100 Tablet 3 12/05/2018 Active diazePAM (VALIUM) 5 MG tablet Take 1 Tablet by mouth every 6 hours as needed (muscle spasm). 30 Tablet 12/04/2018 Active hydrOXYzine pamoate (VISTARIL) 25 MG capsule Take 1-2 Capsules by mouth every 4 hours as needed. 50 Capsule 12/04/2018 Active naproxen (NAPROSYN) 500 MG tablet Take 1 Tablet by mouth two times a day. 60 Tablet 11 12/04/2018 Active Active Problems No known active problems Resolved Problems Problem Noted Date Diagnosed Date Resolved Date Primary osteoarthritis of right knee 12/04/2018 12/04/2018 Social History Tobacco Use Types Packs/Day Years Used Date Smoking Tobacco: Former Smokeless Tobacco: Never Alcohol Use Standard Drinks/Week Comments Not Currently 0 (1 standard drink = 0.6 oz pur e alcohol) Sex and Gender Information Value Date Recorded Sex Assigned at Not on file Gender Identity Not on file Sexual Orientation Not on file Last Filed Vital Signs Vital Sign Reading Time Taken Comments Blood Pressure 135/64 12/04/2018 12:00 PM CDT Pulse 90 12/04/2018 12:00 PM CDT Temperature 36.8 ??C (98.3 ??F) 12/04/2018 1 2:00 PM CDT Respiratory Rate 16 12/04/2018 12:0 0 PM CDT Oxygen Saturation 98% 12/04/2018 12: 00 PM CDT Inhaled Oxygen Concentration - - Weight 121.6 kg (268 lb 1.3 oz) 019 11:32 AM CDT Height 177.8 cm (5' 10) 11/30/2018 1:47 PM CDT Body Mass Index 38.47 11/30/2018 1:47 PM CDT Plan of Treatment Health Maintenance Due Date Last Done Comments Cervical Cancer Screening Due 1961 Colon Cancer Screening Plan Due 1961 Hep C Screening (Preventive Services) 1961 Mammogram 1961 HIV Screening (Preventive Services) 1977 Adult Preventive Visit 1979 Cholesterol 2006 Zoster/Shingles (2 of 2) 08/09/2020 06/14/2020 COVID-19 Vaccine (4 - season) 2024 12/03/2020, 11/01/2020, 08/21/2020 Influenza (#1) 2024 06/14/2020, 07/23, 06/15/2018, Additional history exists DTaP/Tdap/Td (3 - Tdap) 09/29/2024 09/29/19 15, 04/09/2008, 08/26/1998 RSV (1 - 1-dose 75+ series) 2036 HepA Aged Out 04/09/2008, 01/20/2006 No lo nger eligible based on patient's age to complete this topic HepB Aged Out No longer eligi ble based on patient's age to complete this topic Hib Aged Out No longer eligi ble based on patient's age to complete this topic IPV (Polio) Aged Out No longer eligi ble based on patient's age to complete this topic Infant RSV Aged Out No longer eligi ble based on patient's age to complete this topic MCV4 Aged Out No longer eligi ble based on patient's age to complete this topic Pneumococcal Aged Out No longer eligi ble based on patient's age to complete this topic Medical Devices Implanted Type Area Biology Instructor Device Identifier Shelf Expiration Date Model / Serial / Lot Surendra Quickset - [id number] Implanted:Qty: 2 on 12/02/2018 by Easton Quinones MD at [facility] DEVICE Right: KNEE [employer] 03/22/2021 [id number] / NA / [id number] Tib Base Attune Fb Sz7 Surendra - [id number] Implanted:Qty: 1 on 12/02/2018 by Easton Quinones MD at [facility] DEVICE Right: KNEE [employer]Puy [employer]ynthes - Trauma 10/20/2028 7 / NA / [id number] Insert Attune Cr Fb Sz7 5mm - [id number] Implanted:Qty: 1 on 12/02/2018 by Easton Quinones MD at [facility] DEVICE Right: KNEE [employer] - Trauma 10/21/2023 5 / NA / [id number] Comp Attune Cr Fem Rt Sz7 - [id number] Implanted:Qty: 1 on 12/02/2018 by Easton Quinones MD at [facility] DEVICE Right: KNEE [employer]ynthes - Trauma 09/22/2028 7 / NA / [id number] Patella Attune Mdtyler Dome 38mm - [id number] Implanted:Qty: 1 on 12/02/2018 by Easton Quinones MD at [facility] DEVICE Right: KNEE [employer] Synthes - Trauma 10/21/2023 8 / NA / [id number] Advance Directives * Full Code (Latest Code Status on File) Date Activated Date Inactivated Comments 12/02/2018 3:36 PM 12/04/2018 3:10 PM Care Teams Pharmacognosy Teacher Relationship Specialty Start Date End Date Easton Quinones MD PCP - General Orthopedic Surgery 12/02/18
--- OUTSIDE RECORDS SUMMARY | 2024-06-27 11:03 | XMS_ITS | Referral Summary ---
Author Organization [facility] Address [address] [place] [id number] Care Team Providers Care Pants Cutter Name Role Phone César Rodas M.D. Primary Care Provider [phone] Source Comments Patient records contain information from all sites at [facility]. For routine questions regarding patient records, call [phone] during business hours, M-F 8:00 AM - 5:00 PM Central Time. Record requests for emergency care only can be directed to [phone] at any time.[facility] Encounters Date Type Department Care Team Description 06/27/2024 Orders Only [facility] P[facility] César Daniels M.D. 05/09/2024 Clinical Communication Department of Family Medicine, [facility], in [address] [phone] César Rodas M.D. 03/28/2024 Orders Only [facility] PCP [facility] César Daniels M.D. Monitoring For Therapeutic Drug Therapy from Last 3 Months Allergies Active Allergy Reactions Criticality Noted Date Comments Chlorhexidine Other (see comments) Low 07/18/2018 Contact dermititis Hydrocodone-Acetaminoph en Palpitations,Halluc inations Medium 03/25/2009 [place]on Penicillins Rash Medium 05/24/2006 Medications * This [...] (07/01/2020): Added automatically from request for surgery [id number] Urinary Urge Incontinence 01/13/2019 Migraine Headache 06/20/2018 [...] (08/08/2019): Added automatically from request for surgery [id number] Lymphadenopathy 07/05/2018 07/18/2018 Overview (07/05/2018): Added automatically from request for surgery [id number] Screening Cancer Colon 07/26/201701/13 Overview (07/26/2017): Added automatically from request for surgery [id number] Body Mass Index 40.0 To 44.9 Adult 12/30/2016 01/13/2019 Overview (01/12/2017): Body mass index (BMI) 40.0-44.9, adult Rule activated problem due to BMI 40-44 posted on 12/30 at 13:10 CDT. 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/12/2015 01/13/2019 Deficiency Vitamin D 11/18/2013 019 Overview (06/20/2018): Vitamin D deficiency disease Immunizations Name Administration Dates Next Due HepA Adult 04/09/2008,01/20/2006 HepA, Unspecified 04/09/2008,01/20/2006 HepB Adult 04/09/2008,01/20/2006 HepB, Unspecified 04/09/2008,01/20/2006 Influenza, Injectable, Quadrivalent 05/24/2015,0 09/29/2014 Influenza, Unspecified 06/05/2016,05/24/2015 MMR 01/20/2006 RZV (SHINGRIX) 01/06/2021,06/14/2020 SARS-COV-2 (COVID-19) - MODERNA(Discontinued) 12/03/2020,11/01/2020 Td (Adult), adsorbed 08/26/1998 Tdap 09/29/2014,04/09/2008 influenza vaccine quad (FLUZONE/FLUARIX) (6 months and older)(PF) 06/14/2020,08/08/2019,06/15/2018,2015 Social History Tobacco Use Types Packs/Day Years [...] week 12/28/2022 How often do you attend [facility] or zoroastrianism services? More than 4 times per year 12/28/2022 Do you belong to any clubs o r organizations such as episcopalian groups, unions, fraternal or athletic groups, or [...] Answer Date Recorded PHQ-2 Score 0 02/10/2021 [facility] - Occupational Stress Questionnaire Answer Date Recorded [...] place to sleep or slept in a snf (including now)? No 12/28/2022 Depression Answer Date [...] Date Recorded Dental: Regular Dentist Yes 02/14/20 Employment Answer Date Recorded Employment status Retired 12/28/2022 Education Answer Date Recorded What is the highest level of school you have completed or the highest degree you have received? 12th grade 12/28/2022 Comments No Sex and Gender Information Value Date Recorded Sex Assigned at Female 06/20/2018 7:40 PM CDT Legal Sex Female 11:43 AM MEDICAL ASSISTANT DERMATOLOGY Gender Identity Female 06/20/2018 7:40 PM CDT [...] st Contact Info) Description 06/29/2024 10:15 AM MEDICAL ASSISTANT DERMATOLOGY Clinical Support Department of Integrative Medicine in [place], [place] [address] [place] [phone] [place] [phone] Medical Devices Implanted Type Area Customer Relations Advisor Device Identifier Shelf Expiration Date Model / Serial / Lot Conversions - Default Historical Implant Device Implanted:2016 (Quantity not on file) Foreign Body (e.g. Shrapnel) Description:Device Status Te xt - Shrapnel. right hand. Conversions - Default Historical Implant Device Implanted:2016 (Quantity not on file) Hardware e.g. pins/screws/ rods Description:Device Status Te xt - Hardware. rods in back. Mesh Ventralex St 6.4cm Med - Hernandez [id number] Implanted:Qty: 1 on 06/29/2017 Mesh or Patch Abdomen [employer] Description:Device Manufactu rer - Davol Bard. Body Location - Other. Abdominal. Device Status Text - [id number]. Urologic Other Urologic Other Bladder Description:Bladder sling Procedures Procedure Name Priority Date/Time Associated Diagnosis Comments BI BREAST SCREENING BILATERAL WITH TOMOSYNTHESIS RAD - Routine (most inpatients and all outpatients) 08/02/2023 11:54 AM MEDICAL ASSISTANT DERMATOLOGY Screening Mammogram Breast Cancer LIPID PANEL, S [...] Screening Bilateral with Tomosynthesis (08/02/2023 11:54 AM MEDICAL ASSISTANT DERMATOLOGY) Anatomical Region Laterality Modality Breast, Breast Imaging RST L OS, Breast Imaging ARZ LOS, Breast Imaging FLA LOS Bilateral Mammography 08/03/2023 12:0 8 PM MEDICAL ASSISTANT DERMATOLOGY Impressions 08/03/2023 12:10 PM MEDICAL ASSISTANT DERMATOLOGY Negative. RECOMMENDATION: ??Annual Screening Mammogram ASSESSMENT: ??BI-RADS: 1: Negative. Narrative 08/03/2023 12:10 PM MEDICAL ASSISTANT DERMATOLOGY EXAM: ??BI BREAST SCREENING BILATERAL WITH TOMOSYNTHESIS [...] D.O. LAB BLOOD ADD-ON Final R esult [facility] [address] [place] [address], [facility] RDW[facility] [place] [address] [place] [phone] * (ABNORMAL) Basic Metabolic Panel (05/14/2022 7:34 [...] D.O. LAB BLOOD ADD-ON Final R esult [facility] [address] [place] [address], [facility] [place] [address] [place] [phone] * COLONOSCOPY (05/30/2021 8:00 AM CDT) Narrative Procedure Note Bright Ba M.D. - 05/30/2021 8:00 AM CDT [facility] [place] [facility] Patient Name: Jacinta Holcomb Procedure Date: [...] the bowel preparation was evaluatedusing the BBPS (Raiford Bowel Preparation Scale) with scores of: Right Colon = 3, Transverse Colon = 3and Left Colon = 3 (entire mucosa seen well with no residual staining, small fragments of stool or opaque liquid). The total BBPS score equals 9. Sedation: SUZAN Ba MD 05/30/2021 8:31:24 AM This report has been signed electronically. Number of Addenda: 0 Note Initiated On: 05/30/2021 8:00 AM us Ramonita Pimentel D.O. GI PROCEDURE ORDERABLES Final Result * HCV Ab w/Reflex to HCV PCR, S (medicare) (01/06/2017 9:37 AM CDT) HXHCV Ab [facility] Negative Negative POWERCHART Comment: Egttkw-jz-lyfopu ratio is <1.00. Test Performed by: [facility] [address] [place] [address] Blood 01/06/2017 9:37 AM CDT Gaby Boone APRN [facility] MICROBIOLOGY - BLO OD ORDERABLES Final Result POWERCHART from Last 3 Months or Most Recently Relevant to Health Maintenance Insurance [facility] Advance Directives For more information, please contact: [phone] * Full Code (Latest Code Status on File) Date Activated Date Inactivated Comments 05/30/2021 8:34 AM 05/30/2021 11:18 AM Question Answer Comments Full Code: Discussed * Full Code Date Activated Date Inactivated Comments 07/12/2018 9:48 AM 07/12/2018 3:26 PM Question Answer Comments Full Code: Discussed Care Teams Pants Cutter Relationship Specialty Start Date End Date César Rodas M.D. [address] [place] [phone] PCP - General 05/29/22
--- OUTSIDE RECORDS SUMMARY | 2024-06-27 11:03 | XMS_ITS | Continuity of Care Document ---
Author Organization [facility] Address [address] [place] [address] Phone Care Team Providers Care Tug Master Name Role Phone Richardson Nelson MD Unavailable Unavailable Medications Medication Instructions Dosage Effective Dates (start - stop) Status Comments hydrocodone-acetami nophen 5 mg-325 mg Tab take 1 Tablet by ORAL route every 6 hours Prn pain 1.00 Tablet - Active Flexeril 10 mg Tab take 1 tablet (10MG) by ORAL route 3 times every day 10 MG - Active Procedures Procedure Date Office/outpatient visit,est, mod 2008 X-ray exam lower spine 2-3 views 2008 Postop followup visit X-ray exam lower spine 2-3 views 2008 Lumbar spine fusion, posterolateral Lumbar spine fus, pstr intrbdy sngl Decompress lumbar spinalcord seg 2008 Insert spine fixation, posterior 2008 Apply spinal prosthetic device 09 Allograft, spine surg, morselized PA Assist Lumbar spine fusion, posterola teral PA Assist Lumbar spine fus, pstr intrbdy sngl PA Assist Decompress lumbar spinalcord s eg PA Assist Insert spine fixation, posteri or PA Assist Apply spinal prosthetic device Office/outpatient visit,est, mod 2008 Office consultation, moderate 9 Advance Directives Directive Yes / No Effective Date File Name No Information Encounters Encounter Description Practice Location Reason(s) For Visit Diagnoses Date Provider Providers Copied on Encounter [facility], [address], [place], [address], [place] tel:[phone] [facility] No Information Dec-0 8-200 9 Ebenezerwendy Bai. [facility], [address], [place], [place], [id number], [place]. tel:[phone] Office/outpat ient visit,est, mod [facility], [address], [place], [address], [place] tel:[phone] [facility] No Information 2-200 9 Leslie Bai. [facility], [address], [place], [place], [id number], [place]. tel:[phone] Referring Provider: Adrian Gibbs, [address], [address]. tel:[phone] [facility], [address], [place], [address], [place] tel:[phone] [facility] No Information 9-200 9 Leslie Bai. [facility], [address], [place], [place], [id number], [place]. tel:[phone] [facility], [address], [place], [address], [place] tel:[phone] [facility] No Information Sep-1 0-200 9 Ebenezerwendy Bai. [facility], [address], [place], [place], [id number], [place]. tel:[phone] Referring Provider: Adrian Gibbs, [address], [address]. tel:[phone] [facility], [address], [place], [address], [place] tel:[phone] [facility] No Information Aug-0 3-200 9 Schwwendy Richardson. [facility], [address] [place] [address] [address], [place], [place], [id number], . tel:[phone] Referring Provider: Adrian Gibbs, [address], [address]. tel:[phone] Office/outpat ient visit,est, mod [facility], [address] [place], [place] [address], [place], [address], [phone] [facility] No Information 0 2200 9 Leslie Bai. [facility], [address] [place] [address] [address], [place], [place], [id number], . tel:[phone] Referring Provider: Adrian Gibbs, [address], [address]. tel:[phone] Office consultation, moderate [facility], [address] [place], [place] [address], [place], [place], [facility], tel:[phone] [facility] No Information 0 9200 9 Viji Rogers. [facility], [address] [place] [address], [address], [place], [place], [id number], . tel:[phone] Referring Provider: Adrian Gibbs, [address], [address]. tel:[phone] Family History Family Member Type Diagnosis Age At Onset No Information Payers Payer name Insurance type Covered libertarian ID Authoriza tion(s) [employer] CI [id number] Social History Type Description Quantity Date Captured Comments Sex Female Smoking Status No Information Chief Complaint And Reason For Visit No Information Reason For Referral Reason For Referral No Information History Of Present Illness Encounter Date Complaint History Of Prese nt Illness No Information Functional Status Date Functional Assessmen t No Information Instructions Date Instruction Additional Infor mation No Information Assessments Type Assessment Date No Information Patient Care Teams Name Effective Dates (start - stop) Status Members No Information
--- OUTSIDE RECORDS SUMMARY | 2024-06-27 11:04 | XMS_ITS | Encounter Summary ---
Author Organization [facility] Address [address] [place] [address] Care Team Providers Care Size Changer Name Role Phone César Rodas M.D. Primary Care Provider [phone] Encounter Details Date Type Department Care Team (Late st Contact Info) Description 03/28/2024 Orders Only [facility] C[facility]ar [facility] M.[facility]. [address] [place] [phone] Monitoring For Therapeutic Drug Therapy Social History Tobacco Use Types Packs/Day Years Used Date Smoking Tobacco: Former Smokeless Tobacco: Never Comments:30+ years ago Alcohol Use Standard Drinks/Week [...] 12/28/2022 How often do you attend chur ch or mu-ism services? More than 4 times per year 12/28/2022 Do you belong to any clubs o r organizations such as zoroastrianism groups, unions, fraternal or athletic groups, or [...] 0 02/10/2021 [facility] - Occupational Stress [...] place to sleep or slept in a jail (including now)? No 12/28/2022 Depression Answer Date [...] PM CDT Legal Sex Female 11:43 AM OIL OPERATOR Gender Identity Female 06/20/2018 7:40 PM CDT Sexual Orientation Straight 06/20/2018 7: 40 PM CDT documented as of this encounter Plan of Treatment Upcoming Encounters Date Type Department Care Team (Late st Contact Info) Description 06/29/2024 10:15 AM OIL OPERATOR Clinical Support Department of Integrative Medicine in [place], [place] [address] [place] [phone] [place] [phone] Scheduled Orders Name Type Priority Associated Diagnoses Orde r Schedule Basic Metabolic Panel Lab Routine Monitoring For Therapeutic Drug Therapy Expected: 04/11/2024, Expires: 09/24/2024 documented as of this encounter Visit Diagnoses Diagnosis Monitoring For Therapeutic Drug Therapy documented in this encounter Additional Health Concerns Assessment Noted Time PHQ-9 Depression Total Score: 8 02/11/20 21 9:41 AM CDT documented as of this encounter Care Teams Size Changer Relationship Specialty Start Date End Date César Rodas M.D. [address] [place] [phone] PCP - General 05/29/22 documented as of this encounter
--- OUTSIDE RECORDS SUMMARY | 2024-06-27 11:04 | XMS_ITS | Encounter Summary ---
Author Organization [facility] Address [address] [place] [address] Care Team Providers Care Corporate Communications Manager Name Role Phone César Rodas M.D. Primary Care Provider [phone] Reason for Referral * Outpatient (Routine) - Authorized Specialty Diagnoses / Procedures Referred By Contac t Referred To Contact César Rodas M.D. [address] [place] [address] Phone: tel: fax: [facility] Referral ID Status Reason Start Date Expiration Date V isits Requested Visits Authorized [id number] Authorized 06/27/2024 12/27/2025 1 1 ROL SYSTEMS DEVELOPER Encounter Details Date Type Department Care Team (Late st Contact Info) Description 06/27/2024 Orders Only [facility] César Rodas M.D. [address] [place] [phone] Social History Tobacco Use Types Packs/Day Years [...] How often do you attend chur or alevism services? More than 4 times per year 12/28/2022 Do you belong to any clubs o r organizations such as confucianism groups, unions, fraternal or athletic groups, or [...] Answer Date Recorded PHQ-2 Score 0 02/10/2021 [facility] - [...] place to sleep or slept in a skilled nursing (including now)? No 12/28/2022 Depression Answer Date [...] PM CDT Legal Sex Female 11:43 AM CONTROL SYSTEMS DEVELOPER Gender Identity Female 06/20/2018 7:40 PM CDT Sexual Orientation Straight 06/20/2018 7: 40 PM CDT documented as of this encounter Plan of Treatment Upcoming Encounters Date Type Department Care Team (Late st Contact Info) Description 06/29/2024 10:15 AM CONTROL SYSTEMS DEVELOPER Clinical Support Department of Integrative Medicine in [place], [place] [address] [place] [phone] Rosy Rowe [address] [place] [phone] Scheduled Referrals Name Type Priority Associated Diagnoses Orde r Schedule Primary Care nurse visit (clinic) - [facility] Region; BP check; BP check only (UNIX DEVELOPER) Outpatient Referral Routine Expected: 07/11/2024, Expires: 12/24/2024 documented as of this encounter Visit Diagnoses Not on filedocumented in this encounter Additional Health Concerns Assessment Noted Time PHQ-9 Depression Total Score: 8 02/11/20 21 9:41 AM CDT documented as of this encounter Care Teams Corporate Communications Manager Relationship Specialty Start Date End Date César Rodas M.D. [address] [place] [phone] PCP - General 05/29/22 documented as of this encounter
== END 2024-06-27 10:56 | disposition home or self-care (01) ==
PROVIDERS: PCP Nurse Practitioner Family; Visit Provider Nurse Practitioner Family
DX: Z00.00 Encounter for general adult medical examination without abnormal findings (principal); I10 Essential (primary) hypertension; E78.5 Hyperlipidemia, unspecified; R74.8 Abnormal levels of other serum enzymes; E66.01 Morbid (severe) obesity due to excess calories; E55.9 Vitamin D deficiency, unspecified; E83.52 Hypercalcemia; Z13.0 Encounter for screening for diseases of the blood and blood-forming organs and certain disorders involving the immune mechanism
CPT/HCPCS: 80053; 80061; 82306; 83540; 83550; 83970; 84443; 85025

== ENCOUNTER 2024-11-02 08:57 | Outpatient (CLI) | payer OTHER, SELFPAY | END 2024-11-02 08:58 | disposition home or self-care (01) | LOC: KYNREF 08:58 | PROVIDERS: PCP Nurse Practitioner Family; Visit Provider Nurse Practitioner Family | DX: E83.52 Hypercalcemia (principal) | CPT/HCPCS: 82310 ==

== ENCOUNTER 2025-06-28 11:03 | Outpatient (CLI) | payer OTHER, SELFPAY | END 2025-06-28 11:04 | disposition home or self-care (01) | PROVIDERS: PCP Nurse Practitioner Family; Visit Provider Nurse Practitioner Family | DX: Z00.00 Encounter for general adult medical examination without abnormal findings (principal); Z13.0 Encounter for screening for diseases of the blood and blood-forming organs and certain disorders involving the immune mechanism | CPT/HCPCS: 80053; 80061; 85025 ==